=== PATIENT | male | born 1975 | race Caucasian/White ===

== ENCOUNTER → 2021-09-22 | Outpatient (CLI) | payer MEDICAID | END | disposition home or self-care (01) | LOC: LABMAIN 07:59 | PROVIDERS: ATTEND Physician Assistant | DX: Z20.822 Contact with and (suspected) exposure to COVID-19 (principal) | CPT/HCPCS: 87635 ==

== ENCOUNTER 2022-02-28 09:19 | Day surgery (SDC) | payer MEDICAID ==
[2022-02-27 08:38] VITALS: BMI 28.8
[2022-02-28 10:26] VITALS: RESP 16; TEMP 97.6
[2022-02-28] MEDS ORDERED: LIDOCAINE 1% (10MG/ML) FOR IV START INTRADERMA ONE (10:32)
[2022-02-28] MEDS ORDERED: LACTATED RINGERS 1,000 ML IV ONE (10:34)
[2022-02-28] MEDS ORDERED: fentaNYL (PF) 50 MCG/ML 2 ML AMP ONE (11:34)
[2022-02-28] MEDS ORDERED: MIDAZOLAM 2 MG/2 ML VIAL ONE (11:34)
[2022-02-28] MEDS ORDERED: PROPOFOL 10 MG/ML 20 ML VIAL IV ONE (11:34)
--- NOTE | 2022-02-28 11:43 | P.PCN ---
Date of Procedure: 02/28/22 Procedure(s) Performed: BRIEF HISTORY: Patient is a 46-year-old, pleasant, white male scheduled for an upper endoscopy as a part of evaluation of GERD of several years duration. He was on Prilosec 20 mg daily with no help. . PROCEDURE PERFORMED: Esophagogastroduodenoscopy. PREOPERATIVE DIAGNOSIS: Long-standing history of GERD refractory to acid suppressive therapy. IV sedation per anesthesia. PROCEDURE: After informed consent was obtained, the patient was brought into the endoscopy unit. IV sedation was administered by Anesthesia under continuous monitoring. Initially the Olympus GIF-140 video endoscope was inserted into the mouth. Esophagus intubated without any difficulty. It was gradually advanced into the stomach and duodenum and carefully examined. The bulb and the second part of the duodenum appeared normal. The scope at this time was withdrawn to the stomach, adequately insufflated with air, and upon careful examination, mucosa of the antrum, body, cardia and the fundus appeared normal. The scope was then withdrawn into the esophagus. The GE junction was located at 39 cm from the incisors. Small hiatal hernia noted. There were linear erosions and ulceration the distal esophagus consistent with LA grade C reflux esophagitis. Rest of esophagus appeared normal and the patient tolerated the procedure well. IMPRESSION: 1. Linear erosions and ulcerations in the distal esophagus consistent with LA grade C reflux esophagitis. 2. Small hiatal hernia. RECOMMENDATIONS: The findings of this examination were discussed with the patient as well as his family. He was advised to increase omeprazole to 20 mg twice daily and follow antireflux measures.. Follow with the office in 3 months.
[2022-02-28 11:51] VITALS: BP 109/72; PULSE 73
== END 2022-02-28 12:30 | disposition home or self-care (01) ==
LOC: ORWHC2ENDO 09:19
PROVIDERS: ATTEND Internal Medicine Gastroenterology
DX: K22.10 Ulcer of esophagus without bleeding (principal); K44.9 Diaphragmatic hernia without obstruction or gangrene; K21.9 Gastro-esophageal reflux disease without esophagitis; Z98.890 Other specified postprocedural states
CPT/HCPCS: 43235; J2250; J3010; J2704